=== PATIENT | male | born 1970 | race Caucasian/White ===

== ENCOUNTER 2017-05-20 05:20 | Day surgery (SDC) | payer BC ==
[~2017-05-20] VITALS: Ht 190.5 cm; Wt 149.8 kg
[2017-05-20] MEDS ORDERED: LACTATED RINGERS 1,000 ML IV SCH (06:00)
[2017-05-20] MEDS ORDERED: LIDOCAINE 1%, 2ML SQ PRN (06:00)
[2017-05-20] MEDS ORDERED: OMEP20TA62 PO (06:04)
[2017-05-20] MEDS ORDERED: LOSA100T6 PO (06:04)
[2017-05-20] MEDS ORDERED: ALLO300T PO (06:04)
[2017-05-20] MEDS ORDERED: BENA40TA2 PO (06:04)
[2017-05-20] MEDS ORDERED: MULT-257 PO (06:04)
[2017-05-20] MEDS ORDERED: DILT120T3 PO (06:04)
[2017-05-20] MEDS ORDERED: LOVA20TA2 PO (06:04)
[2017-05-20 06:10] VITALS: BP 145/85
[2017-05-20] MEDS ORDERED: FENTANYL PF 100 MCG/2ML ONE ×3 (06:48→08:15)
[2017-05-20 06:49] LABS: ASPARTATE AMINO TRANSFERASE 15 U/L (15-37); BLOOD UREA NITROGEN 11 mg/dL (7-18)
[2017-05-20] MEDS ORDERED: MIDAZOLAM 1 MG/ML, 2ML ONE (06:49)
[2017-05-20] MEDS ORDERED: HYDROmorphone 1 MG/ML, 1ML ONE (06:49)
[2017-05-20] MEDS ORDERED: LIDOCAINE/MPF 2%-EPI 1:200K, 20 ML ONE (07:01)
[2017-05-20] MEDS ORDERED: LIDOCAINE/PF 0.5% ,50ML ONE (07:01)
[2017-05-20] MEDS ORDERED: NEOSPORIN OINT, 15GM ONE (07:01)
[2017-05-20] MEDS ORDERED: EPINEPHRINE 1 MG/ML, 1ML ONE (07:01)
[2017-05-20] MEDS ORDERED: OXYcodone 5 MG/5 ML ORAL.SOL UDC PO PRN (07:30)
[2017-05-20] MEDS ORDERED: FENTANYL PF 100 MCG/2ML IV PRN (07:30)
[2017-05-20] MEDS ORDERED: HYDROmorphone 1 MG/ML, 1ML IV PRN (07:30)
[2017-05-20] MEDS ORDERED: HYDROcodone/APAP 7.5-325MG/15ML UDC PO PRN (07:30)
[2017-05-20] MEDS ORDERED: ONDANSETRON 2MG/ML, 2ML IVPush PRN (07:30)
[2017-05-20] MEDS ORDERED: PROMETHAZINE 25 MG/ML, 1ML IV PRN (07:30)
[2017-05-20] MEDS ORDERED: HYDROcodone/APAP 7.5-325MG/15ML UDC ONE (08:15)
[2017-05-20] MEDS ORDERED: hydrALAzine 20 MG/ML, 1ML ONE (08:37)
[2017-05-20] MEDS ORDERED: hydrALAzine 20 MG/ML, 1ML IV PRN (09:00)
[2017-05-20] MEDS ORDERED: DEXAMETHASONE 4 MG/ML, 1ML ONE (11:01)
[2017-05-20] MEDS ORDERED: SUCCINYLCHOLINE 20 MG/ML, 10ML ONE (11:01)
[2017-05-20] MEDS ORDERED: PROPOFOL 10 MG/ML, 20ML ONE (11:01)
[2017-05-20] MEDS ORDERED: ROCURONIUM 10MG/ML,5ML ONE (11:01)
[2017-05-20] MEDS ORDERED: ONDANSETRON 2MG/ML, 2ML ONE (11:01)
== END 2017-05-20 09:35 | disposition home or self-care (01) ==
LOC: OUT 05:20
PROVIDERS: ATTEND Otolaryngology
DX: J34.2 Deviated nasal septum (principal); J34.89 Other specified disorders of nose and nasal sinuses; J34.3 Hypertrophy of nasal turbinates; E78.5 Hyperlipidemia, unspecified; I10 Essential (primary) hypertension; G47.30 Sleep apnea, unspecified; E66.9 Obesity, unspecified; M10.9 Gout, unspecified; Z68.41 Body mass index [BMI] 40.0-44.9, adult; Z87.39 Personal history of other diseases of the musculoskeletal system and connective tissue
CPT/HCPCS: 30140; 30520; 36415; 80053; J0171; J0330; J0360; J1100; J2250; J2405; J2704; J3010; J3490; J7120; J1170; J2001

== ENCOUNTER 2017-06-03 21:07 | Inpatient (IN) | payer BC ==
[~2017-06-03] VITALS: Ht 190.5 cm; Wt 146.3 kg
[~2017-06-03 21:07] MED LIST: ALLO300T PO; BENA40TA2 PO; DILT120T3 PO; LOSA100T6 PO; LOVA20TA2 PO; MULT-257 PO; OMEP20TA62 PO
[2017-06-03] MEDS ORDERED: LORazepam 2 MG/ML, 1ML IVPush PRN (22:00)
[2017-06-03] MEDS ORDERED: hydrALAzine 20 MG/ML, 1ML IVPush PRN (22:00)
[2017-06-03] MEDS ORDERED: CEPHALEXIN 500 MG CAPSULE PO ONE (22:00)
[2017-06-03] MEDS ORDERED: ONDANSETRON 2MG/ML, 2ML ONE (22:16)
[2017-06-03] MEDS ORDERED: HYDROmorphone 1 MG/ML, 1ML ONE (22:16)
[2017-06-03 22:18] LABS: HEMATOCRIT 50.9 % (39.2-51.8); HEMOGLOBIN 16.8 g/dL (13.7-18.0); WHITE BLOOD COUNT 13.8 x10^3/uL (3.4-10)
[2017-06-03] MEDS: HYDROmorphone 2 MG/ML, 1ML IVPush PRN (22:24)
[2017-06-03] MEDS: ONDANSETRON 2MG/ML, 2ML IVPush PRN (22:24)
[2017-06-03 22:39] LABS: BLOOD UREA NITROGEN 15 mg/dL (7-18)
[2017-06-03 23:15] VITALS: BP 116/64
[2017-06-04] MEDS: SODIUM CHLORIDE 0.9% 1,000 ML IV SCH ×2 (00:56→12:01)
[2017-06-04] MEDS: CEFAZOLIN PMX 1GM/50ML 50 ML IV SCH ×2 (00:56→12:01)
[2017-06-04 02:56] VITALS: BP 163/93
[2017-06-04] MEDS ORDERED: HYDROmorphone 1 MG/ML, 1ML ONE ×2 (03:11→06:50)
[2017-06-04] MEDS: HYDROmorphone 2 MG/ML, 1ML IVPush PRN ×3 (03:13→16:28)
[2017-06-04 05:37] LABS: HEMATOCRIT 44.7 % (39.2-51.8); HEMOGLOBIN 15.2 g/dL (13.7-18.0); WHITE BLOOD COUNT 13.1 x10^3/uL (3.4-10)
[2017-06-04 06:47] VITALS: BP 149/90
[2017-06-04 12:05] VITALS: BP 139/74
[2017-06-04 13:51] VITALS: BP 136/87
[2017-06-04] MEDS ORDERED: CEPH-368 PO (16:21)
[2017-06-04] MEDS: ONDANSETRON 2MG/ML, 2ML IVPush PRN (16:28)
[2017-06-06 09:09] LABS: FACTOR VIII ACTIVITY 123 % (57-163); INTERPRETATION Note (.); VON WILLEBRAND FACT (vWF) ACT 75 % (50-200); VON WILLEBRAND FACTOR (VWF) AG 149 % (50-200)
== END 2017-06-04 17:33 | disposition home or self-care (01) | DRG 151 ==
LOC: ED 22:32 → EDIP 22:39 → 4NOR 22:40
PROVIDERS: ADMIT Family Medicine; ATTEND Family Medicine
DX: R04.0 Epistaxis (principal); E66.01 Morbid (severe) obesity due to excess calories; Z68.41 Body mass index [BMI] 40.0-44.9, adult; E78.5 Hyperlipidemia, unspecified; I10 Essential (primary) hypertension; M10.9 Gout, unspecified; K21.9 Gastro-esophageal reflux disease without esophagitis; F17.200 Nicotine dependence, unspecified, uncomplicated; D72.829 Elevated white blood cell count, unspecified; Z98.84 Bariatric surgery status
CPT/HCPCS: 36415; 80048; 82040; 85025; 85240; 85245; 85246; 85610; 85730; 99285; J0690; J1170; J2405; J7030